=== PATIENT | male | born 1945 | race Caucasian/White ===

== ENCOUNTER 2017-02-12 07:15 | Inpatient (IN) | payer MEDICARE, OTHER ==
[2017-02-08 12:42] LABS: HEMATOCRIT 49.9 % (40.0-51.0); HEMOGLOBIN 16.9 g/dL (13.6-17.8)
[2017-02-08 12:54] LABS: CALCIUM, SERUM 9.6 MG/DL (8.5-10.4); CHLORIDE, SERUM 98 MMOL/L (96-112); CO2 (CARBON DIOXIDE) 32 MMOL/L (24-34); GFR AFRICAN AMERICAN 42 ML/MIN (>=60); GFR NON AFRICAN AMERICAN 37 ML/MIN (>=60); GLUCOSE, SERUM 88 MG/DL (60-99); SODIUM, SERUM 137 MMOL/L (135-148)
[2017-02-08 12:55] LABS: BUN (BLOOD UREA NITROGEN) 30 MG/DL (6-23); CREATININE 1.82 MG/DL (0.70-1.30); POTASSIUM, SERUM 5.8 MMOL/L (3.5-5.3)
[2017-02-10 16:15] LABS: CALCIUM, SERUM 9.4 MG/DL (8.5-10.4); CHLORIDE, SERUM 101 MMOL/L (96-112); CO2 (CARBON DIOXIDE) 30 MMOL/L (24-34); CREATININE 1.38 MG/DL (0.70-1.30); GFR AFRICAN AMERICAN 59 ML/MIN (>=60); GFR NON AFRICAN AMERICAN 51 ML/MIN (>=60); GLUCOSE, SERUM 88 MG/DL (60-99); POTASSIUM, SERUM 4.8 MMOL/L (3.5-5.3); SODIUM, SERUM 138 MMOL/L (135-148)
[2017-02-10 16:17] LABS: BUN (BLOOD UREA NITROGEN) 35 MG/DL (6-23)
--- NOTE | ~2017-02-12 | OP ---
Record Of Operation [facility] [address] [place]. [address] NAME: EDGAR REYNAGA : 45 STATUS : ADM IN PAT#: [id number] AGE: 71 ADM/REG DATE : 02/12/17 MR#: [id number] REPORT SERV DATE: 02/14/17 DICTATED BY: SIMÓN FIELDS II DATE: 02/14/17 REPORT STATUS : Draft TRANSCRIBED BY: MODL DATE: 02/14/17 DATE OF PROCEDURE: 02/12/2017 PREOPERATIVE DIAGNOSES: 1. Right lower extremity severe radiculopathy. 2. L5-S1 severe facet arthrosis and stenosis. 3. L1-2, L2-3 stenosis with history of L3 to L5 fusion. 4. Positive sagittal imbalance. 5. Low back pain. POSTOPERATIVE DIAGNOSES: 1. Right lower extremity severe radiculopathy. 2. L5-S1 severe facet arthrosis and stenosis. 3. L1-2, L2-3 stenosis with history of L3 to L5 fusion. 4. Positive sagittal imbalance. 5. Low back pain. PROCEDURE: 1. Interbody arthrodesis, L5-S1. 2. Application of prosthetic device, L5-S1. 3. Lumbar laminectomy and facetectomy, L1-2, L2-3, and L5-S1. 4. Arredondo-Lawler osteotomies (posterior column osteotomies), L1-2, L2-3. 5. Posterolateral arthrodesis, T12-L1, L1-L2, L2-L3, and L5-S1. 6. Posterior segmental instrumentation, T12 to S1, (L3-L5 was a removal with re- instrumentation). 7. Use of local autograft, allograft substitute, and bone morphogenic protein. 8. Use of the microscope and stereotactic spinal imaging. SURGEON: Simón Fields M.D. FLUIDS: 2900 mL LR. ESTIMATED BLOOD LOSS: 500 mL, 1200 mL of Cell Saver, 250 mL of albumin. DRAINS: Two drains. COMPLICATIONS: None. IMPLANTS: Alphatec. PREOPERATIVE HISTORY: This is a friendly 71-year-old gentleman, with some back pain, but predominantly buttock and leg pain. There was some question on the imaging of possible diskitis at L1-2. However, upon inspection of it, I felt it was most consistent with Modic changes. I also compared the disk space height loss at L1-L2 to a CT scan from 2013, and overall did not see any destructive changes upon the end plates. His C-reactive protein was high interestingly. But again, clinically his symptoms did not match up with infection as Record Of Operation [facility] [id number] [place]. [address] NAME: EDGAR REYNAGA : 45 STATUS : ADM IN PAT#: [id number] AGE: 71 ADM/REG DATE : 02/12/17 MR#: [id number] REPORT SERV DATE: 02/14/17 DICTATED BY: SIMÓN FIELDS II DATE: 02/14/17 REPORT STATUS : Draft TRANSCRIBED BY: MODL DATE: 02/14/17 he was having essentially no back pain consistent with diskitis. He had some low back pain, but it was not his biggest issue. His biggest issue was severe buttock and leg pain which was consistent with radiculopathy. DESCRIPTION OF PROCEDURE: After informed consent was obtained, the patient was brought to the operating room at his request, and general anesthesia achieved. He was placed in the prone position. The back was prepped and draped in a sterile fashion. A large midline incision was made and the dissection was performed from T12 to S1. This was an extensive surgery and extensive dissection. The deep retractors were placed and the intraoperative CT scan completed following placement of the stereotactic clamp to the T11 spinous process. Stereotactic guidance was then used throughout the case. At this point, the top nuts and rods were removed at L3 to L5. The screws were intact and well anchored. At this point, we then performed a laminectomy at L5-S1. The facet on the right was absolutely massive and was severely compressing the S1 nerve root, but more so the L5 nerve root in the foraminal zone. Both nerve roots were then aggressively decompress. Next, the laminectomy and facetectomy were performed at L2-3 and L1-2. Again, there were severe degenerative changes compressing the neural tube and the exiting nerve roots. Next, we then performed Arredondo-Lawler posterior column osteotomies with aggressive resection of the pars. This allowed for some improvement in his sagittal balance during the instrumentation phase of the case. At this point, I was pleased with the decompression of the neural elements at L1-2, L2-3, and L5-S1. Next, the right-sided interbody approach was performed on the right at L5-S1. The S1 nerve root was gently retracted and the diskectomy was completed with the pituitary rongeurs, Kerrison rongeurs, and the curettes. The endplates were denuded of their cartilage and the irrigation was performed. Please note, irrigation was performed at multiple points throughout the case. At this point, the prosthetic device was placed at L5-S1. We also placed local autograft into the anterior column along with local autograft and allograft substitute. Next, the instrumentation was applied in the T12, L1, and L2, as well as S1. A repeat CT scan confirmed acceptable placement of the implants, and the rods were then assembled. Under contouring of the luisa was performed above the previous fusion to help with the flat back deformity. Final tightening was performed. The area was once again irrigated followed by decortication of the transverse processes of T12, L1, L2, L3, L5, and S1. Local autograft, allograft substitute, and bone morphogenic protein were placed along the gutters. Deep drains were placed followed by standard closure. Standard dressings were applied. The patient was extubated and transferred to PACU in stable condition. Record Of Operation [address] [address] NAME: EDGAR REYNAGA : 45 STATUS : ADM IN [facility]#: [id number] AGE: 71 ADM/REG DATE : 02/12/17 MR#: [id number] REPORT SERV DATE: 02/14/17 DICTATED BY: SIMÓN FIELDS II DATE: 02/14/17 REPORT STATUS : Draft TRANSCRIBED BY: KRISH DATE: 02/14/17 CORNELL/KRISH Simón Fields II, M.D. / [id number] CC: Dawson Cortez II, LISA M *
--- NOTE | ~2017-02-12 | DS ---
Discharge Summary [facility] [address] [place]. [address] NAME: EDGAR REYNAGA : 45 STATUS : DIS IN PAT#: [id number] AGE: 71 ADM/REG DATE : 02/12/17 MR#: [id number] REPORT SERV DATE: 02/25/17 DICTATED BY: SIMÓN FIELDS II DATE: 02/24/17 REPORT STATUS : Draft TRANSCRIBED BY: KRISH DATE: 02/24/17 Data Collection from hospitalization DISCHARGE DIAGNOSES: 1. Right lower extremity severe radiculopathy. 2. L5-S1 severe facet arthrosis and stenosis. 3. L1-L2 and L2-L3 stenosis with history of L3-L5 fusion. 4. Positive sagittal imbalance. 5. Low back pain. 6. Hypertension. 7. Chronic kidney disease. 8. Osteoarthritis. 9. Obstructive sleep apnea. 10.Gastroesophageal reflux disease. 11.Hypothyroidism. CONSULTATIONS: None. PROCEDURES PERFORMED: Interbody arthrodesis at L5-S1; application of prosthetic device at L5 S1; lumbar laminectomy and facetectomy at L1-L2, L2-L3, and L5-S1; Arredondo-Lawler osteotomies (posterior column osteotomies) L1-L2 and L2-L3; posterolateral arthrodesis at T12-L1, L1-L2, L2-L3 and L5-S1; posterior segmental instrumentation at T12-S1 (L3-L5 was a removal with re-instrumentation); use of local autograft, allograft substitute, and bone morphogenic protein; and use of microscope and stereotactic spinal imaging on 02/12/2017. PATHOLOGY: Vertebral bone and soft tissue, lumbar - orthopedic hardware, chronic reactive changes. MEDICATIONS: Norvasc 10 mg every evening, Valium 5 mg three times a day as needed, Monodox 100 mg every morning, Neurontin 600 mg three times a day, Synthroid 25 mcg every 48 hours, Cozaar 100 mg every morning, MS Contin 15 mg every 12 hours, Desyrel 50 mg at bedtime, and oxycodone 10-20 mg every four hours as needed. CONDITION AT DISCHARGE: Stable. DISPOSITION: The patient was discharged home on a regular diet with activities as instructed. He would follow up with me on 03/10/2017. HOSPITAL COURSE: This is a 71-year-old man who complained of lumbar spine-related symptoms. The symptoms were located in the right lower extremity with associated numbness, tingling, and weakness. He had right lower extremity radiculopathy. He had L5-S1 severe facet arthrosis and stenosis as well at L1-2 and L2-3 stenosis. The patient has positive sagittal imbalance and low back pain. Treatment options were discussed and it was elected to proceed with surgical intervention. He was admitted to the hospital at this time for further evaluation and treatment. Upon admission, he was taken to the operating room where he underwent the above-mentioned procedure. He tolerated this well, and there were no complications. On postop day #1, his Discharge Summary [facility] [address] [facility] [place]. [address] NAME: EDGAR REYNAGA : 45 STATUS : DIS IN PAT#: [id number] AGE: 71 ADM/REG DATE : 02/12/17 MR#: [id number] REPORT SERV DATE: 02/25/17 DICTATED BY: SIMÓN FIELDS II DATE: 02/24/17 REPORT STATUS : Draft TRANSCRIBED BY: KRISH DATE: 02/24/17 leg pain was much better. Dodson catheter was in place. We encouraged him to mobilize. He was evaluated by Physical Therapy. On 02/14/2017, he said he was feeling good. Radiculopathy continued to improve. He was ambulating well. The Dodson catheter and [employer] were discontinued. He continued to progress. Discharge planning was performed. On 02/16/2017, he remained stable. Discharge instructions were given. Due to his improved and stable condition, he was discharged home with the above-stated instructions. Information collected by: Anca Rivas I submit the above information as my discharge summary. DAVID/KRISH Simón Fields II, M.D. / [id number] CC: Dawson Cortez II, LISA M
[~2017-02-12 07:15] MED LIST: COZAAR100 MG PO; MONODOX100 MG PO; NEUR600 PO; NORCO1 TA2 PO; NORV10 PO; OXYCODONE PO; SYN.025B PO; TRAZ50 PO
[2017-02-12 21:01] LABS: HEMOGLOBIN 13.8 g/dL (13.6-17.8)
[2017-02-12 21:06] LABS: HEMATOCRIT 41.3 % (40.0-51.0)
[2017-02-13 04:53] LABS: BASOPHILS 0.1 %; BASOPHILS ABSOLUTE 0.01 10/3/uL (0.0-0.16); EOSINOPHILS 0 %; HEMATOCRIT 40.6 % (40.0-51.0); HEMOGLOBIN 13.4 g/dL (13.6-17.8); IMMATURE GRANULOCYTES 0.3 %; IMMATURE GRANULOCYTES ABSOLUTE 0.03 10/3/uL (0.0-0.11); LYMPHOCYTES 8.1 %; LYMPHOCYTES ABSOLUTE 0.95 10/3/uL (0.67-4.30); MEAN CORPUSCULAR HEMOGLOB 29.3 pg (26.0-34.0); MEAN PLATELET VOLUME 10.2 fL (9.2-13.0); MONOCYTES 5.9 %; MONOCYTES ABSOLUTE 0.69 10/3/uL (0.21-1.20); NEUTROPHILS 85.6 %; NEUTROPHILS ABSOLUTE 10.06 10/3/uL (2.02-8.40); PLATELET COUNT 326 10/3/uL (150-400); RBC DISTRIBUTION WIDTH 14.2 % (12.0-16.0); RED CELL COUNT 4.58 10/6/uL (4.7-6.1); WHITE BLOOD CELLS 11.7 10/3/uL (4.5-10.5)
[2017-02-13 04:57] LABS: MANUAL DIFF NO %; MEAN CORPUSCULAR VOLUME 88.6 fL (80-100)
[2017-02-13 05:53] LABS: BUN (BLOOD UREA NITROGEN) 28 MG/DL (6-23); CALCIUM, SERUM 7.5 MG/DL (8.5-10.4); CHLORIDE, SERUM 106 MMOL/L (96-112); CO2 (CARBON DIOXIDE) 26 MMOL/L (24-34); GFR AFRICAN AMERICAN 64 ML/MIN (>=60); GFR NON AFRICAN AMERICAN 55 ML/MIN (>=60); GLUCOSE, SERUM 147 MG/DL (60-99); POTASSIUM, SERUM 5.9 MMOL/L (3.5-5.3); SODIUM, SERUM 142 MMOL/L (135-148)
[2017-02-14 03:59] LABS: BASOPHILS 0 %; EOSINOPHILS 0 %; HEMOGLOBIN 11.3 g/dL (13.6-17.8); IMMATURE GRANULOCYTES 0.3 %; IMMATURE GRANULOCYTES ABSOLUTE 0.04 10/3/uL (0.0-0.11); LYMPHOCYTES 10.8 %; LYMPHOCYTES ABSOLUTE 1.61 10/3/uL (0.67-4.30); MEAN CORPUS HGB CONC 32.8 g/dL (32.0-36.0); MEAN CORPUSCULAR HEMOGLOB 28.9 pg (26.0-34.0); MEAN PLATELET VOLUME 9.6 fL (9.2-13.0); MONOCYTES 7.8 %; MONOCYTES ABSOLUTE 1.16 10/3/uL (0.21-1.20); NEUTROPHILS 81.1 %; NEUTROPHILS ABSOLUTE 12.11 10/3/uL (2.02-8.40); PLATELET COUNT 255 10/3/uL (150-400); RBC DISTRIBUTION WIDTH 14.1 % (12.0-16.0); RED CELL COUNT 3.91 10/6/uL (4.7-6.1); WHITE BLOOD CELLS 14.9 10/3/uL (4.5-10.5)
[2017-02-14 04:01] LABS: HEMATOCRIT 34.4 % (40.0-51.0); MANUAL DIFF NO %
[2017-02-16] MEDS ORDERED: MSCONT15 PO (09:28)
[2017-02-16] MEDS ORDERED: V5 PO (09:29)
== END 2017-02-16 11:33 | disposition home health service (06) | DRG 460 ==
LOC: SDC/OF 07:15 → 3SO 20:38
PROVIDERS: Anesthesiology; Orthopaedic Surgery
PROC: 0SG30AJ Fusion of Lumbosacral Joint with Interbody Fusion Device, Posterior Approach, Anterior Column, Open Approach (ICD-10-PCS; principal; 2017-02-12 12:30)
PROC: 0RGA071 Fusion of Thoracolumbar Vertebral Joint with Autologous Tissue Substitute, Posterior Approach, Posterior Column, Open Approach (ICD-10-PCS; 2017-02-12 12:30)
PROC: 0SG1071 Fusion of 2 or more Lumbar Vertebral Joints with Autologous Tissue Substitute, Posterior Approach, Posterior Column, Open Approach (ICD-10-PCS; 2017-02-12 12:30)
PROC: 0SG3071 Fusion of Lumbosacral Joint with Autologous Tissue Substitute, Posterior Approach, Posterior Column, Open Approach (ICD-10-PCS; 2017-02-12 12:30)
PROC: 0SP004Z Removal of Internal Fixation Device from Lumbar Vertebral Joint, Open Approach (ICD-10-PCS; 2017-02-12 12:30)
PROC: 4A11X4G Monitoring of Peripheral Nervous Electrical Activity, Intraoperative, External Approach (ICD-10-PCS; 2017-02-12 12:30)
DX: M51.17 Intervertebral disc disorders with radiculopathy, lumbosacral region (principal); I10 Essential (primary) hypertension; K21.9 Gastro-esophageal reflux disease without esophagitis; E03.9 Hypothyroidism, unspecified; G47.33 Obstructive sleep apnea (adult) (pediatric)
CPT/HCPCS: 36415; 80048; 82962; 85014; 85018; 85025; 86850; 86900; 86901; 87641; 88300; 88304; 88311; 93005; 94002; 97116-GP; 97161-GP; A9270-GY; C1713; G8978-CK-GP; G8979-CJ-GP; J0690; J1170; J1644; J2250; J2370; J2405; J2710; J3010; J3370; P9045